=== PATIENT | female | born 1945 | race Caucasian/White ===

== ENCOUNTER 2020-05-27 03:53 | Outpatient (CLI) | payer MEDICARE, OTHER | END 2020-05-27 03:54 | disposition critical access hospital (66) | LOC: EMS 03:53 | PROVIDERS: ATTEND Emergency Medicine | DX: R55 Syncope and collapse (principal) | CPT/HCPCS: A0425; A0427 ==

== ENCOUNTER 2020-05-27 04:22 | Emergency (ER) | payer MEDICARE, OTHER ==
--- NOTE | 2020-05-27 04:22 | ED Physician Documentation ---
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 No: Seizure, Incontinant of urine, Incontinant of stool, Headache, Vision changes, Chest pain, Palpitations, Dyspnea, Nausea / vomiting, Abdominal pain Contributing factors: Just stood up Injury occurred: Fell, None Pain level max: 0 Pain level now: 0 Similar symptoms before: Has not had sx before Recently seen: Not recently seen - Additional information Additional information: BIBA for syncope. 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 She got up and went to use bathroom. After using the bathroom, she stood up from the toilet and felt dry mouth, diaphoretic, light headed. She bent forward to take a drink of water from the sink and then had a syncopal episode. Her then checked on her and, per EMS report, describes brief LOC (no more than 5 seconds). EMS arrived and found patient was initially "groggy", sitting up, and blood pressure was 94/63. Blood sugar fingerstick 136, pulse 56 and regular. She rapidly became more awake and alert, but when EMS tried to have patient stand up, she became lightheaded and SBP was 73. She received 600cc NS IV en route with normal blood pressures en route (100s SBP). Patient denies chest pain and tells me she feels well while lying down. 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 denies: Fever, Fatigue Eyes: denies: Loss of vision, Decreased vision Cardiac: reports: Reviewed and negative Respiratory: reports: Reviewed and negative GI: reports: Reviewed and negative : denies: Incontinent Musculoskeletal: reports: Reviewed and negative Neurologic: reports: Generalized weakness (pre-sycopal generalized weakness, resolved), Syncope. denies: Focal weakness, Numbness, Headache, Head injury PD PAST MEDICAL HISTORY - Past Medical History Past Medical History: Yes GI: GERD ER NURSE: Breast cancer - Present Medications Home Medications: Ambulatory Orders Medication Instructions Recorded Confirmed No Known Home Medications 05/27/20 05/27/20 - Allergies Allergies/Adverse Reactions: Allergies Allergy/AdvReac Type Severity Reaction Status Date / Time Unknown Cancer IV Medication AdvReac Unknown Uncoded 05/27/20 04:53 - Living Situation Living Situation: reports: With spouse/s.o. Living Arrangement: reports: At home PD ED PE NORMAL - Vitals Vital signs reviewed: Yes - General General: Alert and oriented X 3, No acute distress, Well developed/nourished - HEENT HEENT: Moist mucous membranes - Neck Neck: Supple, no meningeal sign - Cardiac Cardiac: RRR, No gallop, No rub - Respiratory Respiratory: No respiratory distress, Clear bilaterally - Abdomen Abdomen: Soft, Non tender - Back Back: No spinal TTP - Derm Derm: Normal color, Warm and dry - Extremities Extremities: Normal ROM s pain, No edema - Neuro Neuro: Alert and oriented X 3, line erector 2-12 intact, No motor deficit, No sensory deficit, Normal speech Eye Opening: Spontaneous Motor: Obeys Commands Verbal: Oriented GCS Score: 15 PD ED PE EXPANDED - Cardiac Cardiac: Murmur Present (2/6 SKY left 2nd ICS) Results - Vitals Vitals: Vital Signs - 24 hr 05/27/20 05/27/20 05/27/20 04:26 06:10 06:16 Temperature 35.9 C L 36.0 C L Heart Rate 59 L 71 Heart Rate [ 63 Sitting] Heart Rate [ 71 Standing] Heart Rate [ 62 Supine] Respiratory 16 18 Rate Blood Pressure 115/60 108/89 H Blood Pressure 121/54 L [Sitting] Blood Pressure 108/89 H [Standing] Blood Pressure 103/51 L [Supine] O2 Saturation 99 100 Oxygen O2 Source Room air - EKG (time done) No standard instances Rate: Rate (enter#) (57) Rhythm: Sinus bradycardia [place]: Normal Intervals: Normal [place] QRS: Normal Ischemia: Normal ST segments - Labs Labs: Laboratory Tests 05/27/20 05/27/20 05/27/20 04:30 04:30 04:30 WBC 5.1 RBC 3.35 L Hgb 10.9 L Hct 33.6 L MCV 100.3 H MCH 32.5 H MCHC 32.4 RDW 12.4 Plt Count 230 MPV 9.4 Neut # (Auto) 2.6 Lymph # (Auto) 1.7 Webb # (Auto) 0.5 Eos # (Auto) 0.3 Baso # (Auto) 0.0 Absolute Nucleated RBC 0.00 Nucleated RBC % 0.0 Sodium 138 Potassium 3.5 Chloride 107 Carbon Dioxide 22 Anion Gap 9.0 BUN 19 Creatinine 0.8 Estimated GFR (MDRD) 70 L Glucose 117 H Calcium 8.5 Total Bilirubin 0.6 AST 19 ALT 18 Alkaline Phosphatase 55 Troponin I High Sens 3.7 Total Protein 6.0 L Albumin 3.5 Globulin 2.5 Albumin/Globulin Ratio 1.4 Lipase 39 - Rads (name of study) chest xray Radiology: Prelim report reviewed, See rad report PD MEDICAL DECISION MAKING - ED course Complexity details: reviewed results, re-evaluated patient, considered differential, d/w patient ED course: reassuring test results. incidental note is made of large hiatal hernia on CXR (patient was not aware she has HH), 2/6 SKY on exam (patient denies h/o heart murmur), and mildly low hgb/hct. She is asymptomatic during ED stay with normal/stable vital signs. Prior to discharge, she was able to stand without any recurrence of symptoms and her vital signs did not have significant change from lying down. We reviewed results of her tests and I instructed her to return if worse in any way but to also follow up with her primary care provider for possible further evaluation of the incidental findings mentioned above as well as reevaluation regarding tonight's syncopal episode. Departure - Departure Disposition: 01 Home, Self Care Clinical Impression: Heart murmur, Hiatal hernia Syncope Qualifiers: Syncope type: unspecified Qualified Code(s): R55 - Syncope and collapse Condition: Good Instructions: Hiatal Hernia, Heart Murmur, ED Fainting Unkn Cause Discharge Date/Time: 05/27/20 07:00
[2020-05-27] MEDS ORDERED: SODIUM CHLORIDE 0.9% 1,000 ML IV STA (04:37)
[2020-05-27 04:38] LABS: BASOPHILS % (AUTO) 0.8 %; EOSINOPHILS # (AUTO) 0.3 10^3/uL (0.0-0.7); EOSINOPHILS % (AUTO) 5.4 %; HCT - HEMATOCRIT 33.6 % (37.0-47.0); HGB - HEMOGLOBIN 10.9 g/dL (12.0-16.0); LYMPHOCYTES # (AUTO) 1.7 10^3/uL (1.5-3.5); LYMPHOCYTES % (AUTO) 33.5 %; MEAN CORPUSCULAR HEMOGLOBIN 32.5 pg (27.0-31.0); MEAN CORPUSCULAR HGB CONC 32.4 g/dL (32.0-36.0); MEAN CORPUSCULAR VOLUME 100.3 fL (81.0-99.0); MEAN PLATELET VOLUME 9.4 fL (7.9-10.8); MONOCYTES # (AUTO) 0.5 10^3/uL (0.0-1.0); MONOCYTES % (AUTO) 10.3 %; NEUTROPHILS # (AUTO) 2.6 10^3/uL (1.5-6.6); NEUTROPHILS % (AUTO) 49.8 %; PLT - PLATELET COUNT 230 10^3/uL (130-450); RED BLOOD COUNT 3.35 10^6/uL (4.20-5.40); RED CELL DISTRIBUTION WIDTH 12.4 % (12.0-15.0); WHITE BLOOD COUNT 5.1 x10^3/uL (4.8-10.8)
[2020-05-27 04:55] LABS: ALBUMIN 3.5 g/dL (3.2-5.5); ALBUMIN/GLOBULIN RATIO 1.4 (1.0-2.2); BILIRUBIN,TOTAL 0.6 mg/dL (0.2-1.0); CALCIUM 8.5 mg/dL (8.5-10.3); CREATININE 0.8 mg/dL (0.4-1.0); POTASSIUM 3.5 mmol/L (3.5-5.0)
[2020-05-27 06:17] VITALS: BP 103/51
--- NOTE | 2020-05-27 10:18 | XRAY Report ---
PROCEDURE: Chest 2 View X-Ray INDICATIONS: syncope TECHNIQUE: 2 view(s) of the chest. COMPARISON: None. FINDINGS: Surgical changes and devices: None. Lungs and pleura: No pleural effusions or pneumothorax. Lungs are clear. Mediastinum: Mediastinal contours are normal. Heart size is normal. Hiatal hernia is present. Bones and chest wall: No suspicious bony abnormalities. Soft tissues appear unremarkable. IMPRESSION: No acute pulmonary process. Reviewed by: Vicky Ellis MD on 05/27/2020 10:17 AM [facility] Approved by: Vicky Ellis MD on 05/27/2020 10:17 AM [facility] Station ID: [id number]
== END 2020-05-27 07:00 | disposition home or self-care (01) ==
LOC: ED 04:22
DX: R55 Syncope and collapse (principal); R01.1 Cardiac murmur, unspecified; R00.1 Bradycardia, unspecified; K44.9 Diaphragmatic hernia without obstruction or gangrene
CPT/HCPCS: 36415; 80053; 83690; 84484; 85025; 93005; 99284